=== PATIENT | male | born 1965 | race African-American/Black ===

== ENCOUNTER 2024-03-07 23:47 | Emergency (ER) | payer MEDICARE ==
[~2024-03-07] VITALS: Ht 175.3 cm; Wt 59.1 kg
[2024-03-08 00:02] VITALS: TEMP 97.8
[2024-03-08] MEDS ORDERED: BUPR1TAB46 SL (00:46)
[2024-03-08 01:20] VITALS: BP 108/67; PULSE 83; RESP 17; O2SAT 100
== END 2024-03-08 01:27 | disposition home or self-care (01) ==
LOC: EMS 23:48
DX: M54.50 Low back pain, unspecified (principal); Z76.0 Encounter for issue of repeat prescription; Z79.891 Long term (current) use of opiate analgesic; Z98.890 Other specified postprocedural states
CPT/HCPCS: 99281; Z7502

== ENCOUNTER 2024-03-16 13:20 | Emergency (ER) | payer MEDICARE ==
[~2024-03-16] VITALS: Ht 175.3 cm; Wt 59.1 kg
[2024-03-16 13:20] VITALS: BP 125/71; PULSE 102; RESP 18; TEMP 98; O2SAT 96
[~2024-03-16 13:20] MED LIST: BUPR1TAB46 SL
[2024-03-16] MEDS ORDERED: BUPR1FIL19 SL (13:23)
[2024-03-16] MEDS ORDERED: BUPR1TAB46 SL (13:28)
== END 2024-03-16 13:34 | disposition home or self-care (01) ==
LOC: EMS 13:20
DX: F11.20 Opioid dependence, uncomplicated (principal)
CPT/HCPCS: 99281; Z7502